=== PATIENT | male | born 1965 | race Caucasian/White ===

== ENCOUNTER 2019-11-22 12:47 | Day surgery (SDC) | payer OTHER, SELFPAY ==
[2019-11-16 10:46] VITALS: BMI 35.5
[2019-11-22] MEDS: LACTATED RINGERS 1,000 ML 100 ML IV (13:03)
[2019-11-22 13:09] VITALS: BP 124/73; PULSE 67; RESP 16; TEMP 36.2; O2SAT 100; BMI 35.5
--- NOTE | 2019-11-22 15:00 | PM.PREOP ---
Pre-operative Note Interval Note History & Physical reviewed/Exam performed by Physician: Yes Changes to H&P: No
--- NOTE | 2019-11-22 15:31 | SUR.OPER ---
Prone on padded OR bed, head in foam head support, gel chest rolls, gel pad under knees, pillow under lower legs, toes free of pressure, arms secured on padded arm boards at <90 degrees abduction. Safety belt at thigh.
[2019-11-22 15:49] VITALS: BP 131/80; PULSE 85; RESP 14; TEMP 36.2; O2SAT 96
[2019-11-22 15:54] VITALS: BP 112/68; PULSE 88; RESP 16; O2SAT 97
--- NOTE | 2019-11-22 15:59 | PM.OP.1 ---
Operative Date/Time/Diagnoses Date of procedure: 11/22/19 Time of procedure: 15:59 Pre-op diagnosis: perianal abscess Post-op diagnosis: other ( intersphincteric fistula) Procedure & Clinicians Procedure: Examination under anesthesia Fistulotomy Same procedure as scheduled: Yes Indications: 54-year-old male with a perianal abscess per presents examination under anesthesia Surgeon: Elmer Mcqueen Anesthesia Type: General Operative Notes Findings: Intersphincteric fistula Specimen(s): none sent Estimated Blood Loss (mL): 5 Procedure in detail: Patient was brought to the operating room and bilateral lower extremity compression devices were applied. General anesthesia was induced and he was intubated with endotracheal tube. He was then placed into the prone position appropriately padded. He was then prepped and draped in sterile fashion. A rectal examination demonstrates a resolving perianal abscess right posterior midline and no internal masses. Using the lacrimal probe it such that was inserted through the external opening and exits in the anal canal. 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 A fistulotomy was then performed using the electrocautery. Wound was checked for hemostasis. It was irrigated and then and sterile dressing was placed. He was extubated and returned to the recovery room in stable condition. Complications: none Post-operative Condition: stable Disposition: same day surgery
[2019-11-22 16:00] VITALS: BP 112/61; PULSE 81; RESP 13; O2SAT 98
[2019-11-22 16:04] VITALS: BP 114/76; PULSE 76; RESP 14; O2SAT 98
[2019-11-22 16:25] VITALS: BP 106/73; PULSE 64; TEMP 36.4; O2SAT 98
== END 2019-11-22 16:37 | disposition home or self-care (01) ==
PROVIDERS: PCP Family Medicine; Referring Provider Family Medicine; Visit Provider Surgery
PROC: (CPT 45990; principal; 2019-11-22 14:15)
DX: K61.4 Intrasphincteric abscess (principal)
CPT/HCPCS: 46270; J2250; J2704; J3010

== ENCOUNTER 2023-04-08 11:57 | Emergency (ER) | payer OTHER, SELFPAY ==
[2023-04-08] VITALS (33 sets, daily range): BP systolic 95–140; BP diastolic 52–82; PULSE 75–109; RESP 11–23; TEMP 36.2; O2SAT 96–99; BMI 30.7
--- NOTE | 2023-04-08 12:06 | ED.GENADULT ---
HPI - General Adult General Chief complaint: Chest Pain Stated complaint: Chest pain, SOB, L arm sore, since 1030am Time Seen by Provider: 04/08/23 12:06 History of Present Illness HPI narrative: 57-year-old male former smoker with history of coronary artery disease with CA requiring stents in 2018, hypertension, hyperlipidemia presents with his in the chief complaint of a sudden onset severe retrosternal chest pressure with radiation into his left shoulder that started while at rest at about 10 30 this morning. It lasted about 30 minutes and was associated with shortness of breath and diaphoresis. He states that it felt similar to when he had a myocardial infarction a few years ago. He has been taking his medications as directed and denies any change in meds or diet. Denies recent travel, trauma or injury. He denies any obvious fatigued lately but states he has had a few episodes of chest pain off and on over the past few weeks. His last stress test was a few months ago and apparently relatively normal. He sees the cardiology group out of [place]. His current pressure is 1 or 2/10 Related Data Home Medications Medication Instructions Recorded Confirmed aspirin 81 mg tablet,delayed 81 mg PO DAILY 02/15/18 12/14/19 release (Aspir-) atorvastatin 80 mg tablet 80 mg PO DAILY 02/15/18 12/14/19 metoprolol succinate 25 mg 12.5 mg PO DAILY 02/15/18 12/14/19 tablet,extended release 24 hr Previous Rx's Medication Instructions Recorded acetaminophen 325 mg capsule 650 mg PO QID PRN pain #60 caps 11/22/19 (Tylenol) isosorbide mononitrate 30 mg 30 mg PO DAILY #30 tabs 04/08/23 tablet,extended release 24 hr Allergies Allergy/AdvReac Type Severity Reaction Status Date / Time No Known Drug Allergies Allergy Verified 04/08/23 12:14 Review of Systems Review of Systems Narrative: GENERAL: Denies chills, fatigue, malaise, fever, sweats. HEENT: Denies sinus pain, ear pain, sore throat, difficulty swallowing, dizziness. RESPIRATORY: Denies dyspnea, cough, wheezing, hemoptysis, sputum. CARDIOVASCULAR: Denies chest pain, palpitations, orthopnea, edema, GASTROINTESTINAL: Denies nausea, vomiting, abdominal pain, diarrhea, constipation, melena. : Denies dysuria, frequency, incontinence, hematuria, urinary retention. MUSCULOSKELETAL: denies weakness, joint pain, or bony pain SKIN: Denies rash, skin lesions, or other NEUROLOGIC: Denies weakness, headache, numbness, change in speech, confusion, seizures, incoordination. PSYCHIATRIC: No concerning psychosocial issues. 12 point review of systems is negative except for those stated above Patient History Medical History (Updated 04/08/23 @ 17:20 by Javi Olivia DO) CAD (coronary artery disease) Colonoscopy planned HTN (hypertension) Hypercholesterolemia Myocardial infarction Obstructive sleep apnea Surgical History History of heart artery stent Social History household members: spouse and children Smoking Status: Former smoker alcohol intake: former Smoking Status: Former smoker Substance Use Type: does not use Exam Narrative Exam Narrative: GENERAL: [57] year old patient appears stated age. Well-developed patient, in mild distress. HEAD: Atraumatic. Normocephalic. EYES: Pupils equal round and reactive. Extraocular motions intact. No scleral icterus. No injection or drainage. ENT: Nose without bleeding, purulent drainage. Throat without erythema, tonsillar hypertrophy or exudate. Airway patent. NECK: Trachea midline. Non tender CARDIOVASCULAR: Regular rate and rhythm without murmurs, gallops, or rubs. RESPIRATORY: Clear to auscultation. Breath sounds equal bilaterally. No wheezes, rales, or rhonchi. GASTROINTESTINAL: Abdomen soft, non-tender, nondistended. EXTREMITIES: No edema or joint tenderness. BACK: Nontender without deformity or crepitance. No flank tenderness. NEURO: AOx3. SKIN: No rash or erythema of visible areas Initial Vital Signs Initial Vital Signs: Vital Signs Temperature 97.1 F L 04/08/23 12:00 Pulse Rate 93 H 04/08/23 12:00 Respiratory Rate 22 04/08/23 12:00 Blood Pressure 140/82 04/08/23 12:00 Pulse Oximetry 99 04/08/23 12:00 Oxygen Delivery Method Room Air 04/08/23 12:00 Scores HEART Score Heart Score history: Moderately Suspicious Heart Score EKG: Non-Specific repolarization disturbance Heart Score Age: 45-64 years old Heart Score risk factors: > 3 risk factors or hx of atherosclerotic disease Heart Score troponin: < or = to normal limit Heart Score Total: 5 Course Orders Ordered: Discontinued Medications Aspirin (Aspirin 81 Mg Chew Tab) 162 mg PO NOW ONE Stop: 04/08/23 12:09 Last Admin: 04/08/23 12:33 Dose: 162 mg Documented By: MIGUELITO Ketorolac Tromethamine (Ketorolac 30 Mg/Ml Vial) 15 mg IV NOW ONE Stop: 04/08/23 14:21 Last Admin: 04/08/23 14:43 Dose: 15 mg Documented By: MIGUELITO Nitroglycerin (Nitroglycerin 0.4 Mg Sl Tab) 0.4 mg SL [id number] PRN PRN Reason: Chest Pain Last Admin: 04/08/23 12:51 Dose: 0.4 mg Documented By: Admin: 04/08/23 12:38 Dose: 0.4 mg Documented By: MIGUELITO Consultations Consultation #1: upon receipt of second troponin, call placed to cardiology in [place] Dr. Lundberg. Normal/reassuring story, labs, EKGs, and recent nuclear stress. Recommends discharge, close follow-up and will leave a message with his schedulers. Recommends stopping hydrochlorothiazide and starting (Imdur 30 daily) Time: 16:35 Vital Signs Vital signs: Vital Signs - 8 hr 04/08/23 12:00 04/08/23 12:38 04/08/23 12:51 Temperature 97.1 F L Pulse Rate 93 H 94 H 101 H Respiratory Rate 22 Blood Pressure 140/82 138/81 112/63 Pulse Oximetry 99 Oxygen Delivery Method Room Air 04/08/23 12:05 04/08/23 12:23 04/08/23 12:23 Temperature Pulse Rate 95 H 93 H Respiratory Rate 14 16 Blood Pressure 126/77 Pulse Oximetry 99 99 Oxygen Delivery Method 04/08/23 12:30 04/08/23 12:30 04/08/23 12:38 Temperature Pulse Rate 92 H 95 H Respiratory Rate 13 17 Blood Pressure 119/72 Pulse Oximetry 97 98 Oxygen Delivery Method 04/08/23 12:38 04/08/23 12:40 04/08/23 12:40 Temperature Pulse Rate 95 H Respiratory Rate 11 L Blood Pressure 138/81 129/78 Pulse Oximetry 98 Oxygen Delivery Method 04/08/23 12:43 04/08/23 12:43 04/08/23 12:47 Temperature Pulse Rate 109 H 104 H Respiratory Rate 17 18 Blood Pressure 117/64 Pulse Oximetry 99 97 Oxygen Delivery Method 04/08/23 12:47 04/08/23 12:50 04/08/23 12:50 Temperature Pulse Rate 100 H Respiratory Rate 17 Blood Pressure 112/63 112/65 Pulse Oximetry 97 Oxygen Delivery Method 04/08/23 12:54 04/08/23 12:54 04/08/23 12:55 Temperature Pulse Rate 106 H 104 H Respiratory Rate 14 13 Blood Pressure 111/67 Pulse Oximetry 98 98 Oxygen Delivery Method Room Air 04/08/23 12:55 04/08/23 13:00 04/08/23 13:00 Temperature Pulse Rate 102 H Respiratory Rate 17 Blood Pressure 110/57 L 111/63 Pulse Oximetry 98 Oxygen Delivery Method Room Air 04/08/23 13:01 04/08/23 13:01 04/08/23 13:15 Temperature Pulse Rate 100 H 90 Respiratory Rate 20 13 Blood Pressure 112/70 Pulse Oximetry 97 98 Oxygen Delivery Method Room Air 04/08/23 13:15 04/08/23 13:30 04/08/23 13:30 Temperature Pulse Rate 85 Respiratory Rate Blood Pressure 111/59 L 99/58 L Pulse Oximetry 97 Oxygen Delivery Method 04/08/23 13:45 04/08/23 13:45 04/08/23 14:00 Temperature Pulse Rate 86 Respiratory Rate 13 Blood Pressure 95/54 L 97/52 L Pulse Oximetry 96 Oxygen Delivery Method Room Air 04/08/23 14:00 04/08/23 14:15 04/08/23 14:15 Temperature Pulse Rate 86 85 Respiratory Rate 14 15 Blood Pressure 103/59 L Pulse Oximetry 97 96 Oxygen Delivery Method Room Air 04/08/23 14:31 04/08/23 14:32 04/08/23 14:32 Temperature Pulse Rate 83 80 Respiratory Rate 20 12 Blood Pressure 105/63 Pulse Oximetry 98 98 Oxygen Delivery Method 04/08/23 14:45 04/08/23 14:45 04/08/23 15:00 Temperature Pulse Rate 86 Respiratory Rate 17 Blood Pressure 103/66 107/66 Pulse Oximetry 98 Oxygen Delivery Method 04/08/23 15:00 04/08/23 15:15 04/08/23 15:15 Temperature Pulse Rate 81 82 Respiratory Rate 22 14 Blood Pressure 99/65 Pulse Oximetry 98 97 Oxygen Delivery Method 04/08/23 15:30 04/08/23 15:30 04/08/23 15:45 Temperature Pulse Rate 75 75 Respiratory Rate 14 15 Blood Pressure 99/66 Pulse Oximetry 97 97 Oxygen Delivery Method Room Air 04/08/23 15:45 04/08/23 16:00 04/08/23 16:00 Temperature Pulse Rate 78 Respiratory Rate 13 Blood Pressure 97/64 101/65 Pulse Oximetry 97 Oxygen Delivery Method Room Air 04/08/23 16:15 04/08/23 16:15 04/08/23 16:30 Temperature Pulse Rate 80 79 Respiratory Rate 12 19 Blood Pressure 109/66 Pulse Oximetry 98 98 Oxygen Delivery Method 04/08/23 16:31 04/08/23 16:31 Temperature Pulse Rate 84 Respiratory Rate 23 Blood Pressure 116/69 Pulse Oximetry 98 Oxygen Delivery Method Room Air Medical Decision Making Lab Data 04/08/23 12:22 04/08/23 12:22 Labs: Lab Results 04/08/23 04/08/23 04/08/23 Range/Units 12:22 12:22 12:22 WBC 8.0 (4.5-11.0) X10^3/uL RBC 5.21 (4.5-5.9) X10^6/uL Hgb 15.5 (13.5-17.5) g/dL Hct 44.2 (41-53) % MCV 84.9 (80-100) fL MCH 29.8 (26-34) PG MCHC 35.1 (30-36) % RDW 13.5 (11.6-14.8) % Plt Count 169 (150-400) X10^3/uL Neut % (Auto) 67.5 (50-75) % Lymph % (Auto) 26.3 (25-40) % [place] % (Auto) 5.4 (3-14) % Eos % (Auto) 0.6 L (2-4) % Baso % (Auto) 0.2 (0-2) % Neut # (Auto) 5400 (9172-6021) /uL Lymph # (Auto) 2100 (3956-7345) /uL [place] # (Auto) 400 (0-900) /uL Eos # (Auto) 100 (0-450) /uL Baso # (Auto) 0 (0-100) /uL PT 10.8 (10.1-12.7) SECONDS INR 0.9 (0.9-1.3) APTT 27 (26-36) SECONDS D-Dimer (<500) ng/ml Sodium 134 L (137-145) mmol/L Potassium 4.0 (3.4-5.1) mmol/L Chloride 93 L (98-107) mmol/L Carbon Dioxide 30 (22-32) mmol/L BUN 14 (9-20) mg/dL Creatinine 0.81 (0.66-1.25) mg/dL Estimated GFR > 60 (>60) mL/min BUN/Creatinine Ratio 17.3 (6-22) Glucose 270 H (70-100) mg/dL Calcium 9.4 (8.4-10.2) mg/dL Magnesium 1.5 L (1.6-2.3) mg/dL Total Bilirubin 1.2 (0.2-1.3) mg/dL AST 21 (17-59) IU/L ALT 20 (<50) IU/L Alkaline Phosphatase 156 H (38-126) U/L Total Creatine Kinase 47 L (55-170) U/L CK-MB (CK-2) TNP CK-MB (CK-2) Rel Index TNP Troponin I < 0.012 (0.01-0.034) ng/mL Total Protein 8.3 H (6.3-8.2) g/dL Albumin 4.7 (3.5-5.0) g/dL Globulin 3.6 (1.7-4.1) g/dL Albumin/Globulin Ratio 1.3 (1.0-2.8) Lipase 107 (23-300) U/L 04/08/23 04/08/23 Range/Units 12:22 15:22 WBC (4.5-11.0) X10^3/uL RBC (4.5-5.9) X10^6/uL Hgb (13.5-17.5) g/dL Hct (41-53) % MCV (80-100) fL MCH (26-34) PG MCHC (30-36) % RDW (11.6-14.8) % Plt Count (150-400) X10^3/uL Neut % (Auto) (50-75) % Lymph % (Auto) (25-40) % [place] % (Auto) (3-14) % Eos % (Auto) (2-4) % Baso % (Auto) (0-2) % Neut # (Auto) (5460-7242) /uL Lymph # (Auto) (5741-6183) /uL [place] # (Auto) (0-900) /uL Eos # (Auto) (0-450) /uL Baso # (Auto) (0-100) /uL PT (10.1-12.7) SECONDS INR (0.9-1.3) APTT (26-36) SECONDS D-Dimer 254 (<500) ng/ml Sodium (137-145) mmol/L Potassium (3.4-5.1) mmol/L Chloride (98-107) mmol/L Carbon Dioxide (22-32) mmol/L BUN (9-20) mg/dL Creatinine (0.66-1.25) mg/dL Estimated GFR (>60) mL/min BUN/Creatinine Ratio (6-22) Glucose (70-100) mg/dL Calcium (8.4-10.2) mg/dL Magnesium (1.6-2.3) mg/dL Total Bilirubin (0.2-1.3) mg/dL AST (17-59) IU/L ALT (<50) IU/L Alkaline Phosphatase (38-126) U/L Total Creatine Kinase 43 L (55-170) U/L CK-MB (CK-2) TNP CK-MB (CK-2) Rel Index TNP Troponin I < 0.012 (0.01-0.034) ng/mL Total Protein (6.3-8.2) g/dL Albumin (3.5-5.0) g/dL Globulin (1.7-4.1) g/dL Albumin/Globulin Ratio (1.0-2.8) Lipase (23-300) U/L Urine Dip Bedside Urine Glucose 1000 mg/dl Bedside Urine Bilirubin - Negative Bedside Urine Ketone +/- 5 Urine Specific [place] 1.015 Bedside Urine Occult Blood - Negative Bedside Urine pH 6.0 Bedside Urine Protein - Negative Bedside Urine Urobilinogen - Negative Bedside Urine Nitrite - Negative Bedside Urine Leukocytes - Negative Esterase Point of care testing: Urine Dip Bedside Urine Glucose 1000 mg/dl Bedside Urine Bilirubin - Negative Bedside Urine Ketone +/- 5 Urine Specific [place] 1.015 Bedside Urine Occult Blood - Negative Bedside Urine pH 6.0 Bedside Urine Protein - Negative Bedside Urine Urobilinogen - Negative Bedside Urine Nitrite - Negative Bedside Urine Leukocytes - Negative Esterase MDM Narrative Medical decision making narrative: [57] year old patient presents with chest pain at rest, resolved with nitro Multiple etiologies for patient's symptoms considered including, but not limited to: [Cardiac ischemia versus] pulmonary embolism versus musculoskeletal versus GI versus other Prior Charts reviewed in our EMR Primary Historian: patient Labs reviewed and interpreted by myself: No significant abnormalities, troponin x2 negative, D-dimer less than age corrected cutoff Imaging reviewed: Chest x-ray without acute abnormalities Consultations: Discussed with on-call Cardiology in [place], see details above Patient's symptoms improved over duration of stay with above-stated therapies. Findings and discharge diagnosis discussed with patient/family followed by verbalization of understanding Return precautions discussed with patient/family whom verbalize understanding of diagnosis and plan Discharge Plan Departure Patient Disposition: Home Clinical Impression: Chest pain Instructions: DI for Chest Pain Activity Restrictions/Additional Instructions: *You have been diagnosed with [ chest pain. As we discussed your labs and EKGs are very reassuring today. I have discussed with your cardiology group and we sure the opinion that you are safe and appropriate for discharge with close follow-up.] *What to do: * please start the new prescription as soon as possible. Also as we discussed, please stop taking your hydrochlorothiazide. Otherwise continue taking your medications as directed [ x] New medication prescriptions sent to your pharmacy: [[facility] in [place] ] [ ] New medication written as a paper prescription [ ] No new medications given *Please follow up with [facility] cardiology in the next few days. Please call the office tomorrow, let them know you were seen in the emergency department and we would like you seen in follow-up *Return to Emergency Department if you should have any new, worsening or concerning symptoms, such as [fever greater than 101 F, shaking chills, worsening pain, persistent vomiting or other bothersome symptoms] Prescriptions: New isosorbide mononitrate 30 mg tablet extended release 24 hr 30 mg PO DAILY Qty: 30 0RF No Action acetaminophen [Tylenol] 325 mg capsule 650 mg PO QID PRN (Reason: pain) Qty: 60 0RF atorvastatin 80 mg Tablet 80 mg PO DAILY aspirin [Aspir-81] 81 mg Tablet,Delayed Release (Dr/Ec) 81 mg PO DAILY metoprolol succinate 25 mg Tablet Extended Release 24 Hr 12.5 mg PO DAILY Referrals: King Lundberg MD [Non-Staff] - Rafita Sheikh [Primary Care Provider] - Stand Alone Forms: Patient Portal/API
--- NOTE | 2023-04-08 12:08 | DI.RAD.S_ITS ---
PROCEDURE: XR CHEST 1V INDICATIONS: chest pain TECHNIQUE: One view of the chest was acquired. COMPARISON: None. FINDINGS: Surgical changes and devices: None. Lungs and pleura: Lungs are clear. No pleural effusions or pneumothorax. Mediastinum: Mediastinal contours appear normal. Heart size is normal. Bones and chest wall: No suspicious bony lesions. Overlying soft tissues appear unremarkable. IMPRESSION: No acute cardiopulmonary abnormalities or focal airspace disease. Dictated by: Chaparro Nunn M.D. on 04/08/2023 at 12:45 Approved by: Chaparro Nunn M.D. on 04/08/2023 at 12:52
[2023-04-08] MEDS: ASPIRIN 81 MG CHEW TAB 162 MG PO (12:33)
[2023-04-08 12:38] LABS: Add Manual Diff / Slide Review NO; Basophils Absolute Auto 0 /uL (0-100); Basophils Percent Auto 0.2 % (0-2); Eosinophils Absolute Auto 100 /uL (0-450); Eosinophils Percent Auto 0.6 % (2-4); Hematocrit 44.2 % (41-53); Hemoglobin 15.5 g/dL (13.5-17.5); Lymphocytes Absolute Auto 2100 /uL (1100-4500); Lymphocytes Percent Auto 26.3 % (25-40); Mean Corpuscular HGB Conc 35.1 % (30-36); Mean Corpuscular Hemoglobin 29.8 PG (26-34); Mean Corpuscular Volume 84.9 fL (80-100); Monocytes Absolute Auto 400 /uL (0-900); Monocytes Percent Auto 5.4 % (3-14); Neutrophils Absolute Auto 5400 /uL (1500-7000); Neutrophils Percent Auto 67.5 % (50-75); Platelet Count 169 X10^3/uL (150-400); Red Blood Cell Count 5.21 X10^6/uL (4.5-5.9); Red Cell Distribution Width 13.5 % (11.6-14.8)
[2023-04-08] MEDS: NITROGLYCERIN 0.4 MG SL TAB SL ×2 (12:38→12:51)
[2023-04-08 12:41] LABS: INR 0.9 (0.9-1.3); Prothrombin Time 10.8 SECONDS (10.1-12.7)
[2023-04-08 12:44] LABS: PTT Partial Thromboplastin Tim 27 SECONDS (26-36)
[2023-04-08 12:47] LABS: Alanine Aminotransferase 20 IU/L (<50); Albumin 4.7 g/dL (3.5-5.0); Albumin Globulin Ratio 1.3 (1.0-2.8); Alkaline Phosphatase 156 U/L (38-126); Aspartate Aminotransferase 21 IU/L (17-59); BUN Creatinine Ratio 17.3 (6-22); Bilirubin Total 1.2 mg/dL (0.2-1.3); Blood Urea Nitrogen 14 mg/dL (9-20); Calcium 9.4 mg/dL (8.4-10.2); Carbon Dioxide 30 mmol/L (22-32); Chloride 93 mmol/L (98-107); Creatine Kinase 47 U/L (55-170); Estimated Glomerular Filt Rate > 60 mL/min (>60); Globulin 3.6 g/dL (1.7-4.1); Glucose 270 mg/dL (70-100); HEMOLYSIS < 15 (0-50); Lipase 107 U/L (23-300); Magnesium 1.5 mg/dL (1.6-2.3); Sodium 134 mmol/L (137-145); Total Protein 8.3 g/dL (6.3-8.2)
--- NOTE | 2023-04-08 12:55 | PC.NURSE ---
Patient states the first dose of nitro helped his breathing and decreased his shortness of breath. Pt still has the same chest pain. 2nd dose of nitro was given. Patient has a headache now.
[2023-04-08 12:58] LABS: Troponin I < 0.012 ng/mL (0.01-0.034)
[2023-04-08 13:17] LABS: D Dimer 254 ng/ml (<500)
--- NOTE | 2023-04-08 14:17 | PC.NURSE ---
Patient states his chest discomfort has not changed, but he is feeling much less anxious, stating he has no anxiety at the moment. Pt does describe pain in his chest, not his lungs, when he takes a deep breath.
[2023-04-08] MEDS: KETOROLAC 30 MG/ML VIAL 15 MG IV (14:43)
[2023-04-08 15:40] LABS: Creatine Kinase 43 U/L (55-170)
[2023-04-08 15:52] LABS: Troponin I < 0.012 ng/mL (0.01-0.034)
--- NOTE | 2023-04-08 17:05 | PC.NURSE ---
BACKGROUND CHECK COORDINATOR Note: Spoke with Warren at [facility]'s transfer center for consultation with Cardio at 1635. Faxed over consultation packet. Awaiting for call back for consultation.
== END 2023-04-08 17:27 | disposition home or self-care (01) ==
PROVIDERS: Emergency Provider Emergency Medicine; PCP Family Medicine
DX: R07.9 Chest pain, unspecified (principal)
CPT/HCPCS: 36415; 71045; 80053; 81003; 82550; 83690; 83735; 84484; 85025; 85379; 85610; 85730; 93005; 96374; 99284; J1885

== ENCOUNTER 2023-06-16 07:14 | Day surgery (SDC) | payer OTHER, SELFPAY ==
[2023-06-16] MEDS: LACTATED RINGERS 1,000 ML 42 ML IV (07:45)
[2023-06-16 08:00] VITALS: BP 139/86; PULSE 87; RESP 18; TEMP 36.2; O2SAT 99; BMI 30.6
--- NOTE | 2023-06-16 08:37 | PM.HP.1 ---
History of Present Illness History of Present Illness Date Patient Seen: 06/16/23 Time Patient Seen: 08:37 Chief complaint: Colonoscopy Narrative: 57-year-old man here for screening colonoscopy. Personal history of colonic polyps. Last colonoscopy 7 years ago. No abdominal concerns today including new pain blood per rectum unintentional weight loss nausea vomiting. No family history of intestinal malignancy. [facility] Medical History (Updated 06/16/23 @ 08:38 by Elmer Mcqueen MD) CAD (coronary artery disease) Colonoscopy planned HTN (hypertension) Hypercholesterolemia Myocardial infarction Obstructive sleep apnea Surgical History History of heart artery stent Social History household members: spouse and children Smoking Status: Former smoker alcohol intake: former Meds Home Medications and Allergies Home Medications Medication Instructions Recorded Confirmed Type aspirin 81 mg tablet,delayed 81 mg PO DAILY 02/15/18 06/16/23 History release (Aspir-) acetaminophen 325 mg capsule 650 mg PO QID PRN pain #60 caps 11/22/19 06/16/23 Rx (Tylenol) dulaglutide 1.5 mg/0.5 mL 3 mg SUBCUT Q7D 06/16/23 06/16/23 History subcutaneous pen injector (Trulicity) lisinopril 2.5 mg tablet 2.5 mg PO DAILY 06/16/23 06/16/23 History metformin 500 mg tablet,extended 500 mg PO BID 06/16/23 06/16/23 History release 24 hr Allergies Allergy/AdvReac Type Severity Reaction Status Date / Time No Known Drug Allergies Allergy Verified 06/16/23 07:48 Exam Vital Signs (past 8 hours): - 06/16/23 08:00 Temperature 97.1 F L Pulse Rate 87 Respiratory Rate 18 Blood Pressure 139/86 Pulse Oximetry 99 Oxygen Delivery Method Room Air Oxygen Delivery Method Room Air Narrative Exam Narrative: General adult man alert oriented no acute distress Abdomen soft nontender nondistended Assessment & Plan Assessment and plan (1) Personal history of colonic polyps: Status: Acute Assessment & Plan narrative: The patient requires colorectal screening and colonoscopy is recommended. Technical details were discussed. Risks, benefits, alternatives explained. Risks including but not limited to myocardial infarction, aspiration, bleeding, pain, missed lesion, incomplete examination, need for further radiographic studies, colonic perforation, and need for major abdominal surgery were discussed. All questions were answered to their satisfaction, and they are in agreement with this plan.
--- NOTE | 2023-06-16 08:41 | PM.OP.COLON ---
Operative Date/Time/Diagnoses Date of procedure: 06/16/23 Time of procedure: 08:41 Pre-op diagnosis: Personal history of colonic polyps Procedure & Clinicians Study performed: Colonoscopy Indications: Colorectal screening. Personal history of colonic polyps. Surgeon: Elmer Mcqueen Procedure Notes Procedure in detail: The history and physical was performed/updated and the patient is ASA class is 2. The procedure was discussed in detail with the patient. Potential risks complications including infection, bleeding, missed diagnosis, perforation, need for surgery, and were explained. Their questions were answered and informed consent was obtained. Patient was brought to the procedure room and placed standard monitoring equipment. The patient's vital signs were monitored continuously throughout the entire procedure. Prior to starting time-out was performed. The patient was placed in the left lateral recumbent position. Procedural sedation was administered by anesthesia. Examination began with a thorough inspection of the perianal area there was no evidence of fissures, fistulae, external hemorrhoids or cutaneous malignancy. The colonoscopy scope was then placed into the anal canal and was advanced to the cecum, which was identified by the ileocecal valve, the appendiceal orifice and the confluence of the taenia. The scope was then slowly withdrawn examining colon thoroughly in all directions, irrigating it of any residual stool. No masses or polyps. Sigmoid-moderate diverticulosis The patient tolerated the procedure well. They will be discharged once criteria are met. The prep was of fair quality. The withdrawl time was 6 minutes. Specimen(s): none sent Impression: Normal colonoscopy Post-procedure Recommendations: Colonoscopy in 10 years Disposition: same day surgery
[2023-06-16 09:00] VITALS: BP 138/87; PULSE 92; RESP 11; TEMP 36.1; O2SAT 99
[2023-06-16 09:08] VITALS: BP 110/81; PULSE 96; RESP 12; O2SAT 98
[2023-06-16 09:11] VITALS: BP 118/83; PULSE 87; RESP 12; O2SAT 98
[2023-06-16 09:16] VITALS: BP 127/88; PULSE 87; RESP 20; O2SAT 99
== END 2023-06-16 09:32 | disposition home or self-care (01) ==
PROVIDERS: PCP Family Medicine; Referring Provider Surgery; Visit Provider Surgery
PROC: 0DJD8ZZ Inspection of Lower Intestinal Tract, Via Natural or Artificial Opening Endoscopic (ICD-10-PCS; CPT 45378; principal; 2023-06-16 08:45)
DX: Z12.11 Encounter for screening for malignant neoplasm of colon (principal); Z86.010 Personal history of colon polyps; K57.30 Diverticulosis of large intestine without perforation or abscess without bleeding
CPT/HCPCS: 45378; J2704

== ENCOUNTER 2025-05-22 13:54 | Emergency (ER) | payer OTHER, SELFPAY ==
[2025-05-22] VITALS (7 sets, daily range): BP systolic 117–129; BP diastolic 76–82; PULSE 70–97; RESP 14–18; TEMP 36.6; O2SAT 95–98; BMI 30.2
--- NOTE | 2025-05-22 14:12 | DI.RAD.S_ITS ---
PROCEDURE: XR CHEST 1V INDICATIONS: Chest Pain TECHNIQUE: One view of the chest was acquired. COMPARISON: [facility], CR, XR CHEST 1V, 04/08/2023, 12:04. FINDINGS: Surgical changes and devices: None. Lungs and pleura: Lungs are clear. No pleural effusions or pneumothorax. Mediastinum: Mediastinal contours appear normal. Heart size is normal. Bones and chest wall: No suspicious bony lesions. Overlying soft tissues appear unremarkable. IMPRESSION: No acute cardiopulmonary abnormality is seen. Dictated by: King Romero M.D. on 05/22/2025 at 14:34 Approved by: King Romero M.D. on 05/22/2025 at 14:34
--- NOTE | 2025-05-22 14:17 | ED.CHESTPAIN ---
HPI - Chest Pain General Chief Complaint: Chest Pain Stated Complaint: High potassium. sent from his PCP Time Seen by Provider: 05/22/25 13:59 Source: patient Mode of arrival: Ambulatory Limitations: no limitations History of Present Illness HPI narrative: 59-year-old gentleman history of CAD x1 stent, dyslipidemia, diabetes presents with right-sided chest pain seen at the office had blood work drawn including potassium but was apparently elevated and told critically high told to come in to be further evaluated. He is currently asymptomatic at this time. Other than what is stated 14 point review of system is negative. Related Data Home Medications ?Medication ?Instructions ?Recorded ?Confirmed aspirin 81 mg tablet,delayed 81 mg PO DAILY 02/15/18 06/16/23 release (Aspir-) dulaglutide 1.5 mg/0.5 mL 3 mg SUBCUT Q7D 06/16/23 06/16/23 subcutaneous pen injector (Trulicity) lisinopril 2.5 mg tablet 2.5 mg PO DAILY 06/16/23 06/16/23 metformin 500 mg tablet,extended 500 mg PO BID 06/16/23 06/16/23 release 24 hr Previous Rx's ?Medication ?Instructions ?Recorded acetaminophen 325 mg capsule 650 mg (2 x 325 mg) PO QID PRN 11/22/19 (Tylenol) pain #60 caps Allergies Allergy/AdvReac Type Severity Reaction Status Date / Time No Known Drug Allergies Allergy Verified 05/22/25 14:06 Review of Systems Review of Systems ROS Unobtainable: All systems reviewed & are unremarkable except as noted in HPI and below Patient History Medical History (Updated 05/22/25 @ 17:12 by Franco Munoz DO) Colonoscopy planned Hypercholesterolemia HTN (hypertension) Obstructive sleep apnea Myocardial infarction CAD (coronary artery disease) Surgical History History of heart artery stent Social History household members: spouse and children alcohol intake: former Smoking Status: Former smoker alcohol intake frequency: 0-2 drinks per day Exam Narrative Exam Narrative: GENERAL: [59] year old patient appears stated age. Well-developed patient, in mild distress. HEAD: Atraumatic. Normocephalic. EYES: Pupils equal round and reactive. Extraocular motions intact. No scleral icterus. No injection or drainage. ENT: Nose without bleeding, purulent drainage. Throat without erythema, tonsillar hypertrophy or exudate. Airway patent. NECK: Trachea midline. Non tender CARDIOVASCULAR: Regular rate and rhythm without murmurs, gallops, or rubs. RESPIRATORY: Clear to auscultation. Breath sounds equal bilaterally. No wheezes, rales, or rhonchi. GASTROINTESTINAL: Abdomen soft, non-tender, nondistended. EXTREMITIES: No edema or joint tenderness. BACK: Nontender without deformity or crepitance. No flank tenderness. NEURO: AOx3. SKIN: No rash or erythema of visible areas Initial Vital Signs Initial Vital Signs: Vital Signs Temperature 97.8 F 05/22/25 14:06 Pulse Rate 97 H 05/22/25 14:06 Respiratory Rate 18 05/22/25 14:06 Blood Pressure 129/76 05/22/25 14:06 Pulse Oximetry 97 05/22/25 14:06 Oxygen Delivery Method Room Air 05/22/25 14:06 Scores HEART Score Heart Score history: Moderately Suspicious Heart Score EKG: Normal Heart Score Age: 45-64 years old Heart Score risk factors: > 3 risk factors or hx of atherosclerotic disease Heart Score troponin: < or = to normal limit Heart Score Total: 4 Course Orders Ordered: ED Orders 05/22/25 14:12 XR chest 1V Stat Complete Blood Count AUTO DIFF Stat Comprehensive Metabolic Panel Stat Lipase Stat Magnesium Stat NT-proBNP (BNP-Adult 18+) Stat PTT Partial Thromboplastin Toby Stat Prothrombin Time INR Stat Troponin & CK Cardiac Panel Stat EKG-12 Lead Stat Discontinued Medications Aspirin (Aspirin 81 Mg Chew Tab) 324 mg PO NOW ONE Stop: 05/22/25 14:13 Vital Signs Vital signs: Vital Signs - 8 hr 05/22/25 14:06 Temperature 97.8 F Pulse Rate 97 H Respiratory Rate 18 Blood Pressure 129/76 Pulse Oximetry 97 Oxygen Delivery Method Room Air MDM - Chest Pain Lab Data 05/22/25 14:20 05/22/25 14:20 Imaging Data Chest x-ray: Radiologist's Impression: [address] [address] XRay Report Signed Patient: Franco Collins MR#: [id number] : 1965 Acct:[id number] Age/Sex: 59 / M Date of Service: 05/22/25 Loc: ED Accession Number: [id number] Procedure: XR chest 1V Ordering Provider: Franco Munoz D.O. PROCEDURE: XR CHEST 1V INDICATIONS: Chest Pain TECHNIQUE: One view of the chest was acquired. COMPARISON: [facility], , XR CHEST 1V, 04/08/2023, 12:04. FINDINGS: Surgical changes and devices: None. Lungs and pleura: Lungs are clear. No pleural effusions or pneumothorax. Mediastinum: Mediastinal contours appear normal. Heart size is normal. Bones and chest wall: No suspicious bony lesions. Overlying soft tissues appear unremarkable. IMPRESSION: No acute cardiopulmonary abnormality is seen. ECG Data Interpretation: NSR HR 86 FL 146 QRS [address]-t wave change Unchanged from 04/08/[address] [facility] Narrative Medical decision making narrative: Vital signs, nurse triage note, medication list, previous ER visits, and all imaging studies reviewed. Two sets of troponin normal, heart score 4. Chest x-ray showed no acute process. Potassium 4.4 glucose 179. He was given aspirin here. Differential diagnosis STEMI NSTEMI unstable angina GERD anxiety chest wall pain, electrolyte derangement. Follow up PCP and/or drip pumper at your next scheduled appointment. Discharge Plan Departure Patient Disposition: Home Clinical Impression: Chest pain Qualifiers: Chest pain type: chest pain on breathing Qualified Code(s): R07.1 - Chest pain on breathing Instructions: DI for Chest Pain Activity Restrictions/Additional Instructions: Return with new or worsening symptoms. Follow up with PCP and/or drip pumper this week for continuity of care. Prescriptions: No Action acetaminophen [Tylenol] 325 mg capsule 650 mg PO QID PRN (Reason: pain) Qty: 60 0RF aspirin [Aspir-81] 81 mg Tablet,Delayed Release (Dr/Ec) 81 mg PO DAILY metformin 500 mg tablet extended release 24 hr 500 mg PO BID lisinopril 2.5 mg tablet 2.5 mg PO DAILY Trulicity 1.5 mg/0.5 mL pen injector 3 mg SUBCUT Q7D Referrals: Johny Calvert DO [Primary Care Provider, Family Practice] Stand Alone Forms: Patient Portal/API
--- NOTE | 2025-05-22 14:25 | EKG_ITS ---
[place] [id number] [place] [id number] Test Date: 2025-05-22 Pat Name: Franco Collins Department: [facility] Room: Gender: Male Stitcher Utility: MICHELA : 1965 Requested By: Order Number: [id number] Reading MD: German Wiley Measurements Intervals [place] Rate: 86 P: 29 NH: 146 QRS: 46 QRSD: 84 T: 51 QT: 350 QTc: 418 Interpretive Statements Normal sinus rhythm with sinus arrhythmia Possible Inferior infarct , age undetermined Electronically Signed On 05-27-2025 7:35:16 PDT by German Wiley
[2025-05-22 14:27] LABS: Add Manual Diff / Slide Review NO; Hematocrit 44.4 % (41-53); Hemoglobin 15.4 g/dL (13.5-17.5); Lymphocytes Absolute Auto 2100 /uL (1100-4500); Mean Corpuscular HGB Conc 34.6 % (30-36); Mean Corpuscular Hemoglobin 30.2 PG (26-34); Mean Corpuscular Volume 87.4 fL (80-100); Platelet Count 161 X10^3/uL (150-400)
[2025-05-22 14:44] LABS: INR 1.0 (0.9-1.3); Prothrombin Time 11.0 SECONDS (9.4-12.5)
[2025-05-22 14:46] LABS: PTT Partial Thromboplastin Tim 28 SECONDS (25.1-36.5)
[2025-05-22 14:48] LABS: Alanine Aminotransferase 22 IU/L (<50); Albumin 4.5 g/dL (3.5-5.0); Albumin Globulin Ratio 1.5 (1.0-2.8); Alkaline Phosphatase 96 U/L (38-126); Blood Urea Nitrogen 10 mg/dL (9-20); Calcium 9.1 mg/dL (8.4-10.2); Carbon Dioxide 27 mmol/L (22-32); Chloride 102 mmol/L (98-107); Creatine Kinase 71 U/L (55-170); Estimated Glomerular Filt Rate > 60 mL/min (>60); Globulin 3.0 g/dL (1.7-4.1); Glucose 179 mg/dL (70-99); HEMOLYSIS < 15 (0-50); Lipase 130 U/L (23-300); Magnesium 2.0 mg/dL (1.6-2.3); Potassium 4.4 mmol/L (3.4-5.1); Sodium 138 mmol/L (137-145); Total Protein 7.5 g/dL (6.3-8.2)
[2025-05-22 14:59] LABS: NT-proBNP (BNP-Adult 18+) < 20 pg/mL (<125); Troponin I < 0.012 ng/mL (0.01-0.034)
[2025-05-22] MEDS: ASPIRIN 81 MG CHEW TAB 324 MG PO (15:31)
[2025-05-22 16:44] LABS: Troponin I < 0.012 ng/mL (0.01-0.034)
== END 2025-05-22 17:26 | disposition home or self-care (01) ==
PROVIDERS: Emergency Provider Family Medicine; PCP Family Medicine
DX: R07.1 Chest pain on breathing (principal)
CPT/HCPCS: 36415; 71045; 80053; 82550; 83690; 83735; 83880; 84484; 85025; 85610; 85730; 93005; 99284